=== PATIENT | male | born 1935 | race Caucasian/White ===

== ENCOUNTER 2019-02-18 06:21 | Inpatient (IN) | payer MEDICARE, MEDICAID ==
[~2019-02-18] VITALS: Ht 177.8 cm; Wt 75.0 kg
[~2019-02-18 06:21] MED LIST: ASPI-1265 PO; METH500T PO; NITR0.4T51 SL; WALK1EAC55 MC
[2019-02-18] MEDS ORDERED: normal saline 1000ml 1,000 ML IV ONE (06:30)
[2019-02-18 07:09] LABS: BASOPHILS % (AUTO) 0.4 % (0-1); EOSINOPHILS % (AUTO) 0.1 % (0-6); HEMATOCRIT 44.5 % (42.0-52.0); HEMOGLOBIN 15.1 g/dl (14.0-17.9); LYMPHOCYTES # (AUTO) 0.5 X10'3 (1.1-4.8); LYMPHOCYTES % (AUTO) 4.4 % (21-51); MEAN CORPUSCULAR HEMOGLOBIN 32.8 PG (27.0-31.0); MEAN CORPUSCULAR HGB CONC 33.9 g/dL (33.0-36.5); MEAN CORPUSCULAR VOLUME 96.8 FL (78-98); MEAN PLATELET VOLUME 7.6 FL (7.4-10.4); MONOCYTES # (AUTO) 0.9 X10'3 (0-0.9); MONOCYTES % (AUTO) 7.2 % (2-12); NEUTROPHILS % (AUTO) 87.9 % (42-75); PLATELET COUNT 240 X10'3 (140-440); RED CELL DISTRIBUTION WIDTH 12.7 % (11.5-14.5); WHITE BLOOD COUNT 12.5 X10'3 (4.5-11.0)
[2019-02-18 07:18] LABS: CLARITY,URINE CLEAR (Clear); COLOR,URINE YELLOW (Yellow); GLUCOSE, URINE NEGATIVE (Neg); KETONES,URINE TRACE mg/dl (Neg); LEUKOCYTE ESTERASE ,URINE NEGATIVE (Neg); NITRITES, URINE NEGATIVE (Neg); OCCULT BLOOD,URINE TRACE-INTACT (Neg); PH,URINE 5.5 (4.8-8.0); PROTEIN,URINE NEGATIVE (Neg); UROBILINOGEN,URINE 0.2 E.U/dL (0.2-1.0)
[2019-02-18 07:19] LABS: UA COLLECTION TYPE URINAL
[2019-02-18 07:20] LABS: PARTIAL THROMBOPLASTIN TIME 31 SECONDS (22-32)
[2019-02-18 07:25] LABS: BACTERIA,URINE FEW /HPF (Neg); MUCUS STRANDS NONE SEEN /LPF (Neg); RBC,URINE 0-2 /HPF (0-2); SQUAMOUS EPITHELIAL CELL,UR FEW /LPF (FEW); WBC,URINE 0-4 /HPF (0-4)
[2019-02-18 07:25] LABS: ALANINE AMINOTRANSFERASE 23 U/L (12-78); ALBUMIN 3.5 G/DL (3.4-5.0); ALBUMIN/GLOBULIN RATIO 0.9 (1.1-1.5); ALKALINE PHOSPHATASE 118 IU/L (46-116); ANION GAP 12 (8-16); ASPARTATE AMINO TRANSFERASE 19 U/L (10-37); BILIRUBIN,TOTAL 0.8 MG/DL (0.1-1.0); BLOOD UREA NITROGEN 30 MG/DL (7-18); BUN/CREATININE RATIO 10.8 (5.4-32.0); CALCIUM 8.7 MG/DL (8.5-10.1); CHLORIDE 109 MMOL/L (99-107); CREATININE 2.78 MG/DL (0.60-1.10); GLUCOSE 114 MG/DL (70-104); POTASSIUM 4.8 MMOL/L (3.5-5.1); SODIUM 144 MMOL/L (135-145); TOTAL CARBON DIOXIDE 22.7 MMOL/L (24-32); TOTAL PROTEIN 7.4 G/DL (6.4-8.2); eGFR 22 ML/MIN
[2019-02-18 07:26] LABS: HYALINE CASTS 0-3 /LPF (NEGATIVE)
[2019-02-18 07:29] LABS: MAGNESIUM 1.9 MG/DL (1.5-2.4); TROPONIN I < 0.04 NG/ML (0.0-0.05)
[2019-02-18] MEDS ORDERED: amox tr/potassium clavulanate 875/125mg TAB PO ONE (08:50)
[2019-02-18] MEDS ORDERED: ondansetron/PF 4mg/2ml inj IV ONE (08:50)
[2019-02-18] MEDS ORDERED: azithromycin/NS 500mg/250ml 250 ML IV ONE (09:10)
[2019-02-18] MEDS ORDERED: ondansetron/PF 4mg/2ml inj IV PRN (09:45)
[2019-02-18] MEDS ORDERED: HYDROcodone/acetaminophen 5mg/325mg tablet PO PRN (09:45)
[2019-02-18] MEDS ORDERED: acetaminophen 325mg tablet PO PRN ×2 (09:45)
[2019-02-18] MEDS ORDERED: morphine 2 MG/ML inj. syringe IV PRN (09:45)
[2019-02-18] MEDS: normal saline 1000ml 1,000 ML IV SCH ×2 (10:04→20:12)
[2019-02-18] MEDS ORDERED: METO-395 PO ×2 (10:10→10:46)
[2019-02-18] MEDS ORDERED: CLOP75TA35 PO (10:10)
[2019-02-18] MEDS ORDERED: SERT25TA PO (10:10)
[2019-02-18] MEDS ORDERED: ERGO500014 PO ×2 (10:10→10:48)
[2019-02-18] MEDS ORDERED: SERT-153 PO (10:44)
--- NOTE | 2019-02-18 10:46 | NUR ---
JES SHELTON, CAREGIVER: [phone]
[2019-02-18] MEDS ORDERED: METO25TA6 PO (10:47)
[2019-02-18] MEDS: amLODIPine 5mg tablet PO SCH (11:20)
--- NOTE | 2019-02-18 13:10 | NUR ---
PT CAME TO FLOOR. I CHANGED HIS GOWN. CLEANED HIM UP. HE HAD BM FROM HIS GENITALS TO HIS ANKLES. PUT HIS TELE ON, AND DID V/S. GOT HIS SOME WATER AND GAVE HIM HIS CALL LIGHT
[2019-02-18 13:11] LABS: CLARITY,URINE CLEAR (Clear); COLOR,URINE YELLOW (Yellow); GLUCOSE, URINE NEGATIVE (Neg); KETONES,URINE NEGATIVE (Neg); LEUKOCYTE ESTERASE ,URINE NEGATIVE (Neg); NITRITES, URINE NEGATIVE (Neg); OCCULT BLOOD,URINE TRACE-INTACT (Neg); PH,URINE 5.5 (4.8-8.0); PROTEIN,URINE NEGATIVE (Neg); UROBILINOGEN,URINE 0.2 E.U/dL (0.2-1.0)
[2019-02-18 13:14] LABS: UA COLLECTION TYPE URINAL
[2019-02-18 13:15] VITALS: BP 162/75
[2019-02-18 13:20] LABS: BACTERIA,URINE NONE SEEN /HPF (Neg); RBC,URINE 0-2 /HPF (0-2); SQUAMOUS EPITHELIAL CELL,UR FEW /LPF (FEW); WBC,URINE NONE SEEN /HPF (0-4)
[2019-02-18] MEDS: piperacillin/tazo 3.375gm/50ml 50 ML IV SCH ×2 (16:43→23:58)
--- NOTE | 2019-02-18 17:59 | NUR ---
Problems reprioritized. Patient report given, questions answered & plan of care reviewed with GRACIE LAGUNAS.
--- NOTE | 2019-02-18 18:38 | NUR ---
Received report from Meghana LAGUNAS pt is awake on RA in no apparent distress call light and items of freq use within reach.
[2019-02-18 19:10] VITALS: BP 156/85
[2019-02-18] MEDS: heparin, porcine 5000 units/ml vial SQ SCH (20:13)
[2019-02-18] MEDS: metoprolol tartrate 25mg tablet PO SCH (20:13)
[2019-02-18] MEDS: lactobacillus rhamnosus 10,000 MMU CELLS/CAPSULE PO SCH (20:13)
[2019-02-18] MEDS ORDERED: temazepam 15mg capsule PO PRN (21:00)
[2019-02-19 00:40] VITALS: BP 118/73
[2019-02-19] MEDS: normal saline 1000ml 1,000 ML IV SCH ×2 (05:06→15:50)
[2019-02-19 06:00] LABS: BASOPHILS % (AUTO) 0.7 % (0-1); EOSINOPHILS # (AUTO) 0.1 X10'3 (0-0.9); EOSINOPHILS % (AUTO) 1.7 % (0-6); HEMATOCRIT 38.2 % (42.0-52.0); LYMPHOCYTES # (AUTO) 0.9 X10'3 (1.1-4.8); LYMPHOCYTES % (AUTO) 12.9 % (21-51); MEAN CORPUSCULAR HEMOGLOBIN 33.1 PG (27.0-31.0); MEAN CORPUSCULAR HGB CONC 34.1 g/dL (33.0-36.5); MEAN CORPUSCULAR VOLUME 96.9 FL (78-98); MEAN PLATELET VOLUME 8.1 FL (7.4-10.4); MONOCYTES # (AUTO) 0.9 X10'3 (0-0.9); MONOCYTES % (AUTO) 14.1 % (2-12); NEUTROPHILS # (AUTO) 4.7 X10'3 (1.8-7.7); NEUTROPHILS % (AUTO) 70.6 % (42-75); PLATELET COUNT 167 X10'3 (140-440); RED BLOOD COUNT 3.94 X10'6 (4.70-6.10); RED CELL DISTRIBUTION WIDTH 12.5 % (11.5-14.5); WHITE BLOOD COUNT 6.7 X10'3 (4.5-11.0)
--- NOTE | 2019-02-19 06:10 | NUR ---
Patient in room MOISE 356. I have received report from Ayde LAGUNAS and had the opportunity to ask questions and assume patient care.
--- NOTE | 2019-02-19 06:30 | NUR ---
Dr. Puckett aware of positive blood culture gram positive cocci in clusters from aerobic bottle. MD ordered repeat blood cultures.
--- NOTE | 2019-02-19 06:31 | NUR ---
Gave report to Eulalia LAGUNAS with Waleska LAGUNAS pt is on 1L of O2 via NC in no apparent distress, call light and items of freq use within reach.
[2019-02-19 06:33] LABS: ALBUMIN 2.8 G/DL (3.4-5.0); ANION GAP 9 (8-16); BLOOD UREA NITROGEN 24 MG/DL (7-18); BUN/CREATININE RATIO 10.9 (5.4-32.0); CHLORIDE 111 MMOL/L (99-107); CREATININE 2.21 MG/DL (0.60-1.10); GLUCOSE 72 MG/DL (70-104); POTASSIUM 4.4 MMOL/L (3.5-5.1); SODIUM 142 MMOL/L (135-145); TOTAL CARBON DIOXIDE 21.9 MMOL/L (24-32); eGFR 29 ML/MIN
[2019-02-19 07:06] VITALS: BP 169/83
[2019-02-19 07:28] VITALS: BP_SYST 147; BP_SYST 169; BP_SYST 185; BP_DIAS 75; BP_DIAS 83; BP_DIAS 88
[2019-02-19] MEDS: piperacillin/tazo 3.375gm/50ml 50 ML IV SCH ×2 (08:02→15:51)
[2019-02-19] MEDS: lactobacillus rhamnosus 10,000 MMU CELLS/CAPSULE PO SCH ×2 (08:02→19:26)
[2019-02-19] MEDS: amLODIPine 5mg tablet PO SCH (08:02)
[2019-02-19] MEDS: sertraline 50mg tablet PO SCH (08:02)
[2019-02-19] MEDS: metoprolol tartrate 25mg tablet PO SCH (08:02)
[2019-02-19] MEDS: clopidogrel 75mg tablet PO SCH (08:02)
[2019-02-19] MEDS: heparin, porcine 5000 units/ml vial SQ SCH ×2 (08:03→19:26)
[2019-02-19 11:15] VITALS: BP 103/61
[2019-02-19 18:00] VITALS: BP_SYST 142; BP_SYST 153; BP_SYST 160; BP_DIAS 68; BP_DIAS 69; BP_DIAS 70
--- NOTE | 2019-02-19 18:17 | NUR ---
Received report from BEBO Esteban with BEBO Galeano. Patient is awake and alert on room air, in no apparent distress. Having meal. Call light and items of frequent use within reach. Will continue to monitor.
--- NOTE | 2019-02-19 18:45 | NUR ---
Problems reprioritized. Patient report given, questions answered & plan of care reviewed with Maria Ines LAGUNAS.
[2019-02-19] MEDS: metoprolol tartrate 12.5mg (1/2 tablet) PO SCH (19:29)
[2019-02-20] VITALS: BP 167/67
[2019-02-20] MEDS: piperacillin/tazo 3.375gm/50ml 50 ML IV SCH ×2 (00:55→07:46)
[2019-02-20] MEDS: normal saline 1000ml 1,000 ML IV SCH ×2 (02:42→11:44)
[2019-02-20 06:05] LABS: BASOPHILS % (AUTO) 0.5 % (0-1); EOSINOPHILS # (AUTO) 0.2 X10'3 (0-0.9); EOSINOPHILS % (AUTO) 2.9 % (0-6); HEMATOCRIT 38.7 % (42.0-52.0); LYMPHOCYTES # (AUTO) 1.1 X10'3 (1.1-4.8); LYMPHOCYTES % (AUTO) 13.9 % (21-51); MEAN CORPUSCULAR HEMOGLOBIN 32.5 PG (27.0-31.0); MEAN CORPUSCULAR HGB CONC 33.6 g/dL (33.0-36.5); MEAN CORPUSCULAR VOLUME 96.7 FL (78-98); MEAN PLATELET VOLUME 8.2 FL (7.4-10.4); MONOCYTES % (AUTO) 13.1 % (2-12); NEUTROPHILS # (AUTO) 5.4 X10'3 (1.8-7.7); NEUTROPHILS % (AUTO) 69.6 % (42-75); PLATELET COUNT 176 X10'3 (140-440); RED CELL DISTRIBUTION WIDTH 12.5 % (11.5-14.5); WHITE BLOOD COUNT 7.8 X10'3 (4.5-11.0)
--- NOTE | 2019-02-20 06:09 | NUR ---
Problems reprioritized. Patient report given, questions answered & plan of care reviewed with BEBO Esteban.
--- NOTE | 2019-02-20 06:15 | NUR ---
Patient in room MOISE 356. I have received report from Maria Ines LAGUNAS and had the opportunity to ask questions and assume patient care.
[2019-02-20 06:17] LABS: ALBUMIN 2.9 G/DL (3.4-5.0); ANION GAP 13 (8-16); BLOOD UREA NITROGEN 21 MG/DL (7-18); BUN/CREATININE RATIO 10.6 (5.4-32.0); CALCIUM 8.2 MG/DL (8.5-10.1); CHLORIDE 109 MMOL/L (99-107); CREATININE 1.98 MG/DL (0.60-1.10); GLUCOSE 71 MG/DL (70-104); POTASSIUM 4.2 MMOL/L (3.5-5.1); SODIUM 140 MMOL/L (135-145); TOTAL CARBON DIOXIDE 18.4 MMOL/L (24-32); eGFR 32 ML/MIN
[2019-02-20 07:29] VITALS: BP 177/88
[2019-02-20 07:32] VITALS: BP_SYST 148; BP_SYST 177; BP_DIAS 87; BP_DIAS 88
[2019-02-20] MEDS: sertraline 50mg tablet PO SCH (07:45)
[2019-02-20] MEDS: metoprolol tartrate 12.5mg (1/2 tablet) PO SCH (07:45)
[2019-02-20] MEDS: amLODIPine 5mg tablet PO SCH (07:46)
[2019-02-20] MEDS: lactobacillus rhamnosus 10,000 MMU CELLS/CAPSULE PO SCH (07:46)
[2019-02-20] MEDS: heparin, porcine 5000 units/ml vial SQ SCH (07:46)
[2019-02-20] MEDS: clopidogrel 75mg tablet PO SCH (07:46)
[2019-02-20] MEDS ORDERED: amLODIPine 5mg tablet PO STA (10:25)
[2019-02-20] MEDS ORDERED: NOR5T PO (10:46)
[2019-02-20] MEDS ORDERED: METO25TA6 PO (10:46)
[2019-02-20] MEDS ORDERED: AMOX-580 PO (10:46)
[2019-02-20 11:36] VITALS: BP 106/73
--- NOTE | 2019-02-20 13:13 | NUR ---
Patient discharged with all belongings. Rx delivered to bedside via [facility]. Caregiver to take pt home. W/C to front lobby. IV taken out, tele taken off.
== END 2019-02-20 13:45 | disposition home or self-care (01) | DRG 871 ==
LOC: ER 06:21 → SUR 3N 13:18
PROVIDERS: ADMIT Internal Medicine; ATTEND Internal Medicine
DX: A41.9 Sepsis, unspecified organism (principal); J18.9 Pneumonia, unspecified organism; N17.9 Acute kidney failure, unspecified; N18.4 Chronic kidney disease, stage 4 (severe); J44.0 Chronic obstructive pulmonary disease with (acute) lower respiratory infection; K57.12 Diverticulitis of small intestine without perforation or abscess without bleeding; Z66 Do not resuscitate; H91.90 Unspecified hearing loss, unspecified ear; R00.1 Bradycardia, unspecified; K52.9 Noninfective gastroenteritis and colitis, unspecified; F03.90 Unspecified dementia, unspecified severity, without behavioral disturbance, psychotic disturbance, mood disturbance, and anxiety; I12.9 Hypertensive chronic kidney disease with stage 1 through stage 4 chronic kidney disease, or unspecified chronic kidney disease; I25.10 Atherosclerotic heart disease of native coronary artery without angina pectoris; Z95.1 Presence of aortocoronary bypass graft; Z79.02 Long term (current) use of antithrombotics/antiplatelets; Z79.899 Other long term (current) drug therapy; Z87.01 Personal history of pneumonia (recurrent); Z87.891 Personal history of nicotine dependence
CPT/HCPCS: 36415; 71045; 74176; 80048; 80053; 81001; 83605; 83735; 84145; 84484; 85025; 85610; 85730; 87040; 87077; 87081; 87186; 93005; 96361; 96365; 96375; 97116; 97161; 97530; 99285; G0378; J0456; J1644; J2405; J2543; J7030

== ENCOUNTER 2019-12-31 01:40 | Emergency (ER) | payer MEDICARE, MEDICAID ==
[~2019-12-31] VITALS: Ht 182.9 cm; Wt 71.8 kg
[~2019-12-31 01:40] MED LIST changes: -ASPI-1265 PO; +CLOP75TA35 PO; +ERGO500014 PO; -METH500T PO; +METO25TA6 PO; +NOR5T PO; +SERT-153 PO; -WALK1EAC55 MC
[2019-12-31 02:48] LABS: BASOPHILS # (AUTO) 0.1 X10'3 (0-0.2); BASOPHILS % (AUTO) 0.4 % (0-1); EOSINOPHILS % (AUTO) 0.1 % (0-6); HEMATOCRIT 44.1 % (42.0-52.0); HEMOGLOBIN 14.9 g/dl (14.0-17.9); LYMPHOCYTES # (AUTO) 0.9 X10'3 (1.1-4.8); MEAN CORPUSCULAR HEMOGLOBIN 32.2 PG (27.0-31.0); MEAN CORPUSCULAR HGB CONC 33.8 g/dL (33.0-36.5); MEAN CORPUSCULAR VOLUME 95.1 FL (78-98); MEAN PLATELET VOLUME 8.6 FL (7.4-10.4); MONOCYTES # (AUTO) 1.7 X10'3 (0-0.9); MONOCYTES % (AUTO) 7.3 % (2-12); NEUTROPHILS # (AUTO) 20.8 X10'3 (1.8-7.7); NEUTROPHILS % (AUTO) 88.2 % (42-75); PLATELET COUNT 207 X10'3 (140-440); RED BLOOD COUNT 4.64 X10'6 (4.70-6.10); RED CELL DISTRIBUTION WIDTH 13.6 % (11.5-14.5); WHITE BLOOD COUNT 23.6 X10'3 (4.5-11.0)
[2019-12-31 03:01] LABS: ALANINE AMINOTRANSFERASE 24 U/L (12-78); ALBUMIN 3.8 G/DL (3.4-5.0); ALKALINE PHOSPHATASE 107 IU/L (46-116); ANION GAP 13 (8-16); ASPARTATE AMINO TRANSFERASE 20 U/L (10-37); BILIRUBIN,TOTAL 0.8 MG/DL (0.1-1.0); BLOOD UREA NITROGEN 29 MG/DL (7-18); BUN/CREATININE RATIO 10.1 (5.4-32.0); CALCIUM 9.2 MG/DL (8.5-10.1); CHLORIDE 107 MMOL/L (99-107); CREATININE 2.86 MG/DL (0.60-1.10); GLUCOSE 134 MG/DL (70-104); POTASSIUM 4.8 MMOL/L (3.5-5.1); SODIUM 142 MMOL/L (135-145); TOTAL PROTEIN 7.6 G/DL (6.4-8.2); eGFR 21 ML/MIN
[2019-12-31] MEDS ORDERED: normal saline 1000ML IV soln IV ONE (03:15)
[2019-12-31 03:30] LABS: CLARITY,URINE CLEAR (Clear); COLOR,URINE YELLOW (Yellow); GLUCOSE, URINE NEGATIVE (Neg); KETONES,URINE TRACE mg/dl (Neg); LEUKOCYTE ESTERASE ,URINE NEGATIVE (Neg); NITRITES, URINE NEGATIVE (Neg); OCCULT BLOOD,URINE NEGATIVE (Neg); PH,URINE 5.5 (4.8-8.0); PROTEIN,URINE NEGATIVE (Neg); UROBILINOGEN,URINE 0.2 E.U/dL (0.2-1.0)
[2019-12-31 03:32] LABS: PLATELET ESTIMATE NORMAL; TOTAL CELLS COUNTED 100
[2019-12-31 03:33] LABS: UA COLLECTION TYPE CLN CATCH MIDSTREAM
[2019-12-31 03:43] VITALS: BP 151/76
--- NOTE | 2019-12-31 05:08 | NUR ---
Spoke with Lisa (caregiver) re need for transport for pt. back home. Lisa will be making her way down to [place] from [facility]. ETA 45 mins.
== END 2019-12-31 06:22 | disposition home or self-care (01) ==
LOC: ER 01:41
DX: R53.1 Weakness (principal); F03.90 Unspecified dementia, unspecified severity, without behavioral disturbance, psychotic disturbance, mood disturbance, and anxiety; R11.10 Vomiting, unspecified; J44.9 Chronic obstructive pulmonary disease, unspecified; Z87.891 Personal history of nicotine dependence; Z79.899 Other long term (current) drug therapy
CPT/HCPCS: 36415; 70450; 71045; 80053; 81003; 83605; 84145; 84443; 84484; 85025; 87040; 93005; 99285; J7030

== ENCOUNTER 2020-02-01 20:49 | Inpatient (IN) | payer MEDICARE, MEDICAID ==
[~2020-02-01] VITALS: Ht 182.9 cm; Wt 68.2 kg
--- NOTE | 2020-02-01 21:02 | NUR ---
X RAY AT BEDSIDE
[2020-02-01 21:17] LABS: BASOPHILS # (AUTO) 0.1 X10'3 (0-0.2); BASOPHILS % (AUTO) 0.7 % (0-1); EOSINOPHILS # (AUTO) 0.1 X10'3 (0-0.9); EOSINOPHILS % (AUTO) 0.8 % (0-6); HEMATOCRIT 42.6 % (42.0-52.0); HEMOGLOBIN 14.2 g/dl (14.0-17.9); LYMPHOCYTES # (AUTO) 1.3 X10'3 (1.1-4.8); MEAN CORPUSCULAR HEMOGLOBIN 31.7 PG (27.0-31.0); MEAN CORPUSCULAR HGB CONC 33.3 g/dL (33.0-36.5); MEAN CORPUSCULAR VOLUME 95.2 FL (78-98); MEAN PLATELET VOLUME 9.1 FL (7.4-10.4); MONOCYTES # (AUTO) 1.6 X10'3 (0-0.9); MONOCYTES % (AUTO) 13.9 % (2-12); NEUTROPHILS # (AUTO) 8.5 X10'3 (1.8-7.7); NEUTROPHILS % (AUTO) 73.6 % (42-75); PLATELET COUNT 165 X10'3 (140-440); RED BLOOD COUNT 4.47 X10'6 (4.70-6.10); WHITE BLOOD COUNT 11.6 X10'3 (4.5-11.0)
[2020-02-01 21:34] LABS: ALANINE AMINOTRANSFERASE 28 U/L (12-78); ALBUMIN 3.6 G/DL (3.4-5.0); ALBUMIN/GLOBULIN RATIO 0.9 (1.1-1.5); ALKALINE PHOSPHATASE 100 IU/L (46-116); ANION GAP 9 (8-16); ASPARTATE AMINO TRANSFERASE 20 U/L (10-37); BILIRUBIN,TOTAL 0.8 MG/DL (0.1-1.0); BLOOD UREA NITROGEN 33 MG/DL (7-18); BUN/CREATININE RATIO 11.9 (5.4-32.0); CALCIUM 9.1 MG/DL (8.5-10.1); CHLORIDE 105 MMOL/L (99-107); CREATININE 2.77 MG/DL (0.60-1.10); GLUCOSE 106 MG/DL (70-104); POTASSIUM 4.4 MMOL/L (3.5-5.1); SODIUM 140 MMOL/L (135-145); TOTAL PROTEIN 7.4 G/DL (6.4-8.2); eGFR 22 ML/MIN
--- NOTE | 2020-02-01 22:18 | NUR ---
MONITORING PT WHILE PRIMARY RN IS ON BREAK.
--- NOTE | 2020-02-01 23:36 | NUR ---
CALLED JES WHO IS LISTED IN PTS CHART A FRIEND TO COME PICK PT UP THERE WAS NO ANSWER I LEFT MESSAGE
--- NOTE | 2020-02-01 23:57 | NUR ---
BREAKING PRIMARY RN WHILE SHE IS ON LUNCH- WILL CONTINUE TO MONITOR.
--- NOTE | 2020-02-01 23:58 | NUR ---
PER ROBERTO LAGUNAS, SHE SPOKE TO DAT KENDRICK; HE WOULD LIKE A GAIT TEST TO BE COMPLETED ON PT AND UPDATE HIM WITH RESULTS OF GAIT TEST.
--- NOTE | 2020-02-02 00:04 | NUR ---
gait test being completed by Will
--- NOTE | 2020-02-02 00:14 | NUR ---
PT DID NOT PASS GAIT TEST- WILL UPDATE DR. DAUGHERTY
--- NOTE | 2020-02-02 00:30 | NUR ---
PT MOLDER MACHINE TENDER JES THEOMOSES CAN BE REACHED AT [phone] OR [phone] SHE CALLED TO CHECK ON PT AND WAS ABLE TO REIEW HIS MEDICATION REGIEME OVER THE PHONE . SHE STATES SHE HELPS GIVE PT HIS MEDICATION
[2020-02-02] MEDS ORDERED: HYDROcodone/acetaminophen 10/325mg tab PO PRN (01:45)
[2020-02-02] MEDS ORDERED: ondansetron/PF 4mg/2ml inj IV PRN (01:45)
[2020-02-02] MEDS ORDERED: potassium Cl 20 mEq SR tablet PO PRN ×2 (01:45)
[2020-02-02] MEDS ORDERED: magnesium 2GM in 50ml NS 50 ML IV PRN (01:45)
[2020-02-02] MEDS ORDERED: mag hydrox/Alum hydrox/simeth 30ml oral suspension PO PRN (01:45)
[2020-02-02] MEDS ORDERED: magnesium 4gm in 100ml NS 100 ML IV PRN (01:45)
[2020-02-02] MEDS ORDERED: HYDROcodone/acetaminophen 5mg/325mg tablet PO PRN (01:45)
[2020-02-02] MEDS ORDERED: potassium CL 10mEq/100ml bag 100 ML IV PRN ×2 (01:45)
[2020-02-02] MEDS ORDERED: ipratropium/albuterol 3ml nebule NEB PRN (01:45)
[2020-02-02] MEDS ORDERED: acetaminophen 325mg tablet PO PRN (01:45)
[2020-02-02] MEDS: normal saline 1000ml 1,000 ML IV SCH ×3 (02:09→21:45)
[2020-02-02] MEDS ORDERED: METO25TA6 PO (02:30)
[2020-02-02] MEDS ORDERED: AMLO2.5T2 PO (02:30)
[2020-02-02] MEDS ORDERED: ROSU10TA2 PO (02:30)
--- NOTE | 2020-02-02 02:43 | NUR ---
BREAKING PRIMARY RN; WILL CONTINUE TO MONITOR PT STATUS.
[2020-02-02 02:58] LABS: BASOPHILS # (AUTO) 0.1 X10'3 (0-0.2); EOSINOPHILS # (AUTO) 0.1 X10'3 (0-0.9); HEMATOCRIT 41.1 % (42.0-52.0); MEAN CORPUSCULAR HEMOGLOBIN 32.5 PG (27.0-31.0); MEAN CORPUSCULAR HGB CONC 34.1 g/dL (33.0-36.5)
[2020-02-02 02:59] LABS: BASOPHILS % (AUTO) 0.8 % (0-1); EOSINOPHILS % (AUTO) 0.5 % (0-6); LYMPHOCYTES % (AUTO) 7.3 % (21-51); MEAN CORPUSCULAR VOLUME 95.4 FL (78-98); MEAN PLATELET VOLUME 8.8 FL (7.4-10.4); MONOCYTES # (AUTO) 1.6 X10'3 (0-0.9); MONOCYTES % (AUTO) 11.2 % (2-12); NEUTROPHILS # (AUTO) 11.3 X10'3 (1.8-7.7); NEUTROPHILS % (AUTO) 80.2 % (42-75); PLATELET COUNT 146 X10'3 (140-440); RED BLOOD COUNT 4.31 X10'6 (4.70-6.10); RED CELL DISTRIBUTION WIDTH 12.9 % (11.5-14.5); WHITE BLOOD COUNT 14.1 X10'3 (4.5-11.0)
[2020-02-02 03:49] LABS: ALANINE AMINOTRANSFERASE 28 U/L (12-78); ALBUMIN 3.4 G/DL (3.4-5.0); ALBUMIN/GLOBULIN RATIO 0.9 (1.1-1.5); ALKALINE PHOSPHATASE 98 IU/L (46-116); ANION GAP 12 (8-16); ASPARTATE AMINO TRANSFERASE 18 U/L (10-37); BILIRUBIN,TOTAL 0.8 MG/DL (0.1-1.0); BLOOD UREA NITROGEN 34 MG/DL (7-18); BUN/CREATININE RATIO 13.7 (5.4-32.0); CALCIUM 8.9 MG/DL (8.5-10.1); CHLORIDE 106 MMOL/L (99-107); CREATININE 2.48 MG/DL (0.60-1.10); GLUCOSE 109 MG/DL (70-104); POTASSIUM 4.4 MMOL/L (3.5-5.1); SODIUM 140 MMOL/L (135-145); TOTAL CARBON DIOXIDE 22.2 MMOL/L (24-32); TOTAL PROTEIN 7.3 G/DL (6.4-8.2); eGFR 25 ML/MIN
--- NOTE | 2020-02-02 06:01 | NUR ---
PT AWOKE UPON VS ASSESSMENT . PT WAS ABLE TO TELL THIS RECORDER, WHERE HE IS, HIS BIRTHDATE, THE PRESIDENT , AND WHO CARES FOR HIM . PT PRESENTS NOT CONFUSED HE WAS AT ADMISSION , AND IS ASKING QUESTIONS ABOUT HIS PLAN OF CARE
--- NOTE | 2020-02-02 06:17 | NUR ---
Patient in room ED 14. I have received report from BEBO Park and had the opportunity to ask questions and awaiting pts arrival from ED.
[2020-02-02 06:30] VITALS: BP 138/68
--- NOTE | 2020-02-02 06:30 | NUR ---
Patient arrived from ED, alert and oriented to room. Transferred pt with backboard and 3 person assist to bed. Bed locked and lowered, call light within reach, non skid socks on. First set of vitals taken: T 98.3 BP 138/68 HR 90 R 18 02 96 room air Pain 0/10.
--- NOTE | 2020-02-02 06:30 | NUR ---
Patient in room PCU 3028. I have received report from Vivian LAGUNAS and had the opportunity to ask questions and assume patient care.
--- NOTE | 2020-02-02 07:44 | NUR ---
Pt asked about his wallet with $1,000 in it which was in his pants pocket. Myself, along with another RN looked through his belongings and didn't see a wallet. I called ED, spoke with Prosper who called security, they denied having any sort of wallet for pt. I called ED and spoke with Adilia, charge operator, she called the nurse that took care of him when he arrived to ED, she stated that he didn't have a wallet but had a brown folded thing with his cards in it, no márquez noted. I looked through his belongings, he has a black cane, white socks, kim shirt, dark underwear, blue jeans, shoes, a gold band ring, a gold watch, in jeans pocket was $1.51 in change, a partnership card and medicare card, and two pocket knives that were sent to security. I also called down to security my self, and they are going to look around for a wallet and let me know if they find anything with his name on it.
[2020-02-02] MEDS: K and/or MAG REPLACEMENT MC SCH ×2 (08:00→20:00)
[2020-02-02] MEDS: docusate sod 100mg capsule PO SCH ×2 (08:00→20:00)
[2020-02-02] MEDS: clopidogrel 75mg tablet PO SCH (08:12)
[2020-02-02] MEDS: CefTRIAXone/D5W-Rocephin 1gm 50 ML IV SCH (08:13)
[2020-02-02] MEDS: heparin, porcine 5000 units/ml vial SQ SCH ×2 (08:13→20:58)
--- NOTE | 2020-02-02 09:35 | NUR ---
Spoke with caregiver Lisa, she informed me that patient's wallet and money are at home in his safe.
--- NOTE | 2020-02-02 09:59 | NUR ---
Paged Protective Services Social Worker regarding a consult Re: Jesús Goodman [id number] Pt needs consulted please. Thank you [phone]
[2020-02-02 11:00] VITALS: BP 132/75
[2020-02-02 15:00] VITALS: BP 141/66
[2020-02-02] MEDS ORDERED: nitroGLYCERIN 0.4mg SUBLingual tab SL SCH (16:35)
[2020-02-02 18:00] VITALS: BP 139/71
--- NOTE | 2020-02-02 18:19 | NUR ---
Problems reprioritized. Patient report given, questions answered & plan of care reviewed with BEBO Acevedo. Pt eating dinner sitting up in high fowlers. All pt needs met at this time.
--- NOTE | 2020-02-02 18:20 | NUR ---
Patient in room PCU 3028. I have received report from SALVADOR Gtuierrez RN and had the opportunity to ask questions and assume patient care.
[2020-02-02] MEDS: lactobacillus rhamnosus 10,000 MMU CELLS/CAPSULE PO SCH (20:00)
[2020-02-02] MEDS: metoprolol tartrate 25mg tablet PO SCH (20:58)
[2020-02-02] MEDS: ROSUVASTATIN CALCIUM PO SCH (21:00)
[2020-02-02 22:00] VITALS: BP 136/65
--- NOTE | 2020-02-02 23:39 | NUR ---
PTS IV WAS OCCLUDED, PT REFUSED NEW IV.
--- NOTE | 2020-02-02 23:46 | NUR ---
SENT PT TO [facility]: PAGER ID: [phone] MESSAGE: PT RA[place]aly IN [id number] REFUSES IV PLACEMENT. HAS IV ROCEPHIN IN MORN. NAZIA 2690 [facility] CALLED BACK, NO NEW ORDERS RECEIVED.
[2020-02-03 02:00] VITALS: BP 149/68
[2020-02-03 05:45] LABS: BASOPHILS # (AUTO) 0.1 X10'3 (0-0.2); BASOPHILS % (AUTO) 0.5 % (0-1); EOSINOPHILS # (AUTO) 0.1 X10'3 (0-0.9); EOSINOPHILS % (AUTO) 1.1 % (0-6); HEMOGLOBIN 13.3 g/dl (14.0-17.9); LYMPHOCYTES # (AUTO) 1.2 X10'3 (1.1-4.8); LYMPHOCYTES % (AUTO) 11.3 % (21-51); MEAN CORPUSCULAR HEMOGLOBIN 32.2 PG (27.0-31.0); MEAN CORPUSCULAR HGB CONC 34.1 g/dL (33.0-36.5); MEAN CORPUSCULAR VOLUME 94.5 FL (78-98); MEAN PLATELET VOLUME 9.3 FL (7.4-10.4); MONOCYTES # (AUTO) 1.1 X10'3 (0-0.9); MONOCYTES % (AUTO) 11.1 % (2-12); NEUTROPHILS # (AUTO) 7.7 X10'3 (1.8-7.7); PLATELET COUNT 162 X10'3 (140-440); RED BLOOD COUNT 4.13 X10'6 (4.70-6.10); RED CELL DISTRIBUTION WIDTH 12.9 % (11.5-14.5); WHITE BLOOD COUNT 10.2 X10'3 (4.5-11.0)
[2020-02-03 06:02] LABS: ALANINE AMINOTRANSFERASE 20 U/L (12-78); ALBUMIN/GLOBULIN RATIO 0.8 (1.1-1.5); ALKALINE PHOSPHATASE 89 IU/L (46-116); ANION GAP 13 (8-16); ASPARTATE AMINO TRANSFERASE 12 U/L (10-37); BILIRUBIN,TOTAL 0.8 MG/DL (0.1-1.0); BLOOD UREA NITROGEN 30 MG/DL (7-18); BUN/CREATININE RATIO 15.4 (5.4-32.0); CALCIUM 8.7 MG/DL (8.5-10.1); CHLORIDE 104 MMOL/L (99-107); CREATININE 1.95 MG/DL (0.60-1.10); GLUCOSE 77 MG/DL (70-104); MAGNESIUM 1.8 MG/DL (1.5-2.4); POTASSIUM 4.2 MMOL/L (3.5-5.1); SODIUM 137 MMOL/L (135-145); TOTAL CARBON DIOXIDE 20.4 MMOL/L (24-32); TOTAL PROTEIN 6.9 G/DL (6.4-8.2); eGFR 33 ML/MIN
--- NOTE | 2020-02-03 06:06 | NUR ---
Problems reprioritized. Patient report given, questions answered & plan of care reviewed with LILIA LAGUNAS.
--- NOTE | 2020-02-03 06:36 | NUR ---
Patient in room PCU 3028. I have received report from Jatin LAGUNAS and had the opportunity to ask questions and assume patient care.
[2020-02-03 07:00] VITALS: BP 138/72
[2020-02-03] MEDS ORDERED: clopidogrel 75mg tablet PO SCH (08:00)
[2020-02-03] MEDS: K and/or MAG REPLACEMENT MC SCH ×2 (08:00→20:00)
[2020-02-03] MEDS: normal saline 1000ml 1,000 ML IV SCH ×2 (08:45→21:53)
[2020-02-03] MEDS: CefTRIAXone/D5W-Rocephin 1gm 50 ML IV SCH (08:45)
[2020-02-03] MEDS: metoprolol tartrate 25mg tablet PO SCH ×2 (08:46→21:42)
[2020-02-03] MEDS: heparin, porcine 5000 units/ml vial SQ SCH ×2 (08:46→21:43)
[2020-02-03] MEDS: clopidogrel 75mg tablet PO SCH (08:47)
[2020-02-03] MEDS: lactobacillus rhamnosus 10,000 MMU CELLS/CAPSULE PO SCH ×2 (08:47→21:41)
[2020-02-03] MEDS: sertraline 50mg tablet PO SCH (08:47)
[2020-02-03] MEDS: docusate sod 100mg capsule PO SCH ×2 (08:47→21:44)
[2020-02-03] MEDS: amLODIPine 2.5mg tablet PO SCH (08:48)
[2020-02-03 09:54] LABS: CLARITY,URINE CLEAR (Clear); COLOR,URINE YELLOW (Yellow); GLUCOSE, URINE NEGATIVE (Neg); KETONES,URINE 15 mg/dl (Neg); LEUKOCYTE ESTERASE ,URINE NEGATIVE (Neg); NITRITES, URINE NEGATIVE (Neg); OCCULT BLOOD,URINE SMALL (Neg); PROTEIN,URINE NEGATIVE (Neg); UROBILINOGEN,URINE 0.2 E.U/dL (0.2-1.0)
[2020-02-03 10:03] LABS: BACTERIA,URINE NONE SEEN /HPF (Neg); MUCUS STRANDS FEW /LPF (Neg); RBC,URINE 0-2 /HPF (0-2); SQUAMOUS EPITHELIAL CELL,UR NONE SEEN /LPF (FEW); UA COLLECTION TYPE NON-SPECIFIED; WBC,URINE NONE SEEN /HPF (0-4)
[2020-02-03] MEDS ORDERED: nitroGLYCERIN 0.4mg SUBLingual tab SL PRN (10:15)
[2020-02-03 11:00] VITALS: BP 147/68
[2020-02-03 15:00] VITALS: BP 141/69
[2020-02-03 18:00] VITALS: BP 140/68
--- NOTE | 2020-02-03 18:00 | NUR ---
Patient in room U 3023. I have received report from Scar LAGUNAS and had the opportunity to ask questions and assume patient care. Addendum: 02/03/20 at 1851 by Mily Hess RN Amended: Links added.
--- NOTE | 2020-02-03 18:33 | NUR ---
Problems reprioritized. Patient report given, questions answered & plan of care reviewed with Jessica LAGUNAS.
[2020-02-03] MEDS: ROSUVASTATIN CALCIUM PO SCH (21:43)
--- NOTE | 2020-02-03 22:57 | NUR ---
Pt's day care home mother/POA by the name Lisa Deja called inquiring about patients concerns regarding being discharged. I informed Lisa that at this point pt. is still very weak and I did not have information on when pt was going to be discharged. Lisa asked what would be the best time to call for f/p tomorrow; I suggested to call at around 1000 AM; Lisa agreed. Addendum: 02/04/20 at 0702 by Mily Hess RN Amended: Links added.
[2020-02-04] VITALS: BP 162/73
[2020-02-04 05:42] LABS: BASOPHILS % (AUTO) 0.5 % (0-1); EOSINOPHILS % (AUTO) 0.5 % (0-6); HEMATOCRIT 37.1 % (42.0-52.0); HEMOGLOBIN 12.7 g/dl (14.0-17.9); LYMPHOCYTES # (AUTO) 0.9 X10'3 (1.1-4.8); LYMPHOCYTES % (AUTO) 9.7 % (21-51); MEAN CORPUSCULAR HEMOGLOBIN 32.3 PG (27.0-31.0); MEAN CORPUSCULAR HGB CONC 34.3 g/dL (33.0-36.5); MEAN PLATELET VOLUME 8.8 FL (7.4-10.4); MONOCYTES # (AUTO) 1.1 X10'3 (0-0.9); MONOCYTES % (AUTO) 11.7 % (2-12); NEUTROPHILS # (AUTO) 7.3 X10'3 (1.8-7.7); NEUTROPHILS % (AUTO) 77.6 % (42-75); PLATELET COUNT 169 X10'3 (140-440); RED BLOOD COUNT 3.95 X10'6 (4.70-6.10); RED CELL DISTRIBUTION WIDTH 12.7 % (11.5-14.5); WHITE BLOOD COUNT 9.4 X10'3 (4.5-11.0)
[2020-02-04 05:54] LABS: ALANINE AMINOTRANSFERASE 17 U/L (12-78); ALBUMIN 2.8 G/DL (3.4-5.0); ALBUMIN/GLOBULIN RATIO 0.7 (1.1-1.5); ALKALINE PHOSPHATASE 83 IU/L (46-116); ANION GAP 12 (8-16); ASPARTATE AMINO TRANSFERASE 14 U/L (10-37); BILIRUBIN,TOTAL 0.6 MG/DL (0.1-1.0); BLOOD UREA NITROGEN 26 MG/DL (7-18); BUN/CREATININE RATIO 14.3 (5.4-32.0); CALCIUM 8.9 MG/DL (8.5-10.1); CHLORIDE 104 MMOL/L (99-107); CREATININE 1.82 MG/DL (0.60-1.10); GLUCOSE 96 MG/DL (70-104); MAGNESIUM 1.7 MG/DL (1.5-2.4); POTASSIUM 3.7 MMOL/L (3.5-5.1); SODIUM 137 MMOL/L (135-145); TOTAL CARBON DIOXIDE 20.7 MMOL/L (24-32); TOTAL PROTEIN 6.7 G/DL (6.4-8.2); eGFR 36 ML/MIN
--- NOTE | 2020-02-04 06:00 | NUR ---
Patient in room PCU 3023. I have received report from Mily LAGUNAS and had the opportunity to ask questions and assume patient care.
--- NOTE | 2020-02-04 06:00 | NUR ---
Problems reprioritized. Patient report given, questions answered & plan of care reviewed with Pinky LAGUNAS. Addendum: 02/04/20 at 0706 by Mily Hess RN Amended: Links added.
[2020-02-04 07:00] VITALS: BP 147/74
[2020-02-04] MEDS: K and/or MAG REPLACEMENT MC SCH ×2 (08:00→20:00)
[2020-02-04] MEDS ORDERED: ergocalciferol (Vitamin D) 50,000 unit capsule PO SCH (08:00)
[2020-02-04] MEDS: CefTRIAXone/D5W-Rocephin 1gm 50 ML IV SCH (08:20)
[2020-02-04] MEDS: docusate sod 100mg capsule PO SCH ×2 (08:21→21:44)
[2020-02-04] MEDS: lactobacillus rhamnosus 10,000 MMU CELLS/CAPSULE PO SCH ×2 (08:21→21:44)
[2020-02-04] MEDS: metoprolol tartrate 25mg tablet PO SCH ×2 (08:21→21:45)
[2020-02-04] MEDS: heparin, porcine 5000 units/ml vial SQ SCH ×2 (08:22→21:47)
[2020-02-04] MEDS: sertraline 50mg tablet PO SCH (08:22)
[2020-02-04] MEDS: amLODIPine 2.5mg tablet PO SCH (08:22)
[2020-02-04] MEDS: clopidogrel 75mg tablet PO SCH (08:22)
[2020-02-04 11:00] VITALS: BP 134/59
[2020-02-04] MEDS: acetaminophen 325mg tablet PO PRN (12:43)
[2020-02-04 15:00] VITALS: BP 132/67
--- NOTE | 2020-02-04 15:56 | NUR ---
Problems reprioritized. Patient report given, questions answered & plan of care reviewed with Luana LAGUNAS.
--- NOTE | 2020-02-04 15:56 | NUR ---
Patient in room PCU 3023. I have received report from Elizabeth LAGUNAS and had the opportunity to ask questions and assume patient care.
--- NOTE | 2020-02-04 16:14 | NUR ---
POA/caregiver is Lisa Short [phone]
--- NOTE | 2020-02-04 18:00 | NUR ---
Patient in room U 3023. I have received report from Luana LAGUNAS and had the opportunity to ask questions and assume patient care. Addendum: 02/04/20 at 1902 by Mily Hess RN Amended: Links added.
[2020-02-04 20:00] VITALS: BP 173/79
[2020-02-04] MEDS: ROSUVASTATIN CALCIUM PO SCH (21:45)
--- NOTE | 2020-02-04 22:01 | NUR ---
Pt. awake alert to own name and place, reoriented pt. to place and event. c/o a sharp headache sharp in nurture.; geoff johnson given. will f/u Addendum: 02/04/20 at 2205 by Mily Hess RN Amended: Links added.
[2020-02-04 22:35] VITALS: BP 101/74
[2020-02-05 01:44] VITALS: BP 138/77
[2020-02-05 05:45] LABS: BASOPHILS # (AUTO) 0.1 X10'3 (0-0.2); BASOPHILS % (AUTO) 0.5 % (0-1); EOSINOPHILS # (AUTO) 0.1 X10'3 (0-0.9); EOSINOPHILS % (AUTO) 0.8 % (0-6); HEMATOCRIT 40.4 % (42.0-52.0); HEMOGLOBIN 13.9 g/dl (14.0-17.9); LYMPHOCYTES # (AUTO) 1.3 X10'3 (1.1-4.8); MEAN CORPUSCULAR HEMOGLOBIN 32.2 PG (27.0-31.0); MEAN CORPUSCULAR HGB CONC 34.3 g/dL (33.0-36.5); MEAN CORPUSCULAR VOLUME 93.8 FL (78-98); MEAN PLATELET VOLUME 8.8 FL (7.4-10.4); MONOCYTES # (AUTO) 1.1 X10'3 (0-0.9); MONOCYTES % (AUTO) 9.8 % (2-12); NEUTROPHILS # (AUTO) 8.3 X10'3 (1.8-7.7); NEUTROPHILS % (AUTO) 76.9 % (42-75); PLATELET COUNT 188 X10'3 (140-440); RED BLOOD COUNT 4.31 X10'6 (4.70-6.10); RED CELL DISTRIBUTION WIDTH 12.7 % (11.5-14.5); WHITE BLOOD COUNT 10.8 X10'3 (4.5-11.0)
[2020-02-05 06:00] LABS: ALANINE AMINOTRANSFERASE 16 U/L (12-78); ALBUMIN 2.9 G/DL (3.4-5.0); ALBUMIN/GLOBULIN RATIO 0.7 (1.1-1.5); ALKALINE PHOSPHATASE 89 IU/L (46-116); ANION GAP 13 (8-16); ASPARTATE AMINO TRANSFERASE 16 U/L (10-37); BILIRUBIN,TOTAL 0.5 MG/DL (0.1-1.0); BLOOD UREA NITROGEN 25 MG/DL (7-18); BUN/CREATININE RATIO 14.1 (5.4-32.0); CALCIUM 9.1 MG/DL (8.5-10.1); CHLORIDE 104 MMOL/L (99-107); CREATININE 1.77 MG/DL (0.60-1.10); GLUCOSE 88 MG/DL (70-104); MAGNESIUM 1.8 MG/DL (1.5-2.4); POTASSIUM 3.9 MMOL/L (3.5-5.1); SODIUM 137 MMOL/L (135-145); TOTAL CARBON DIOXIDE 20.5 MMOL/L (24-32); eGFR 37 ML/MIN
--- NOTE | 2020-02-05 06:00 | NUR ---
Problems reprioritized. Patient report given, questions answered & plan of care reviewed with Pinky LAGUNAS. Addendum: 02/05/20 at 0622 by Mily Hess RN Amended: Links added.
--- NOTE | 2020-02-05 06:00 | NUR ---
Patient in room PCU 3023. I have received report from Mily LAGUNAS and had the opportunity to ask questions and assume patient care.
--- NOTE | 2020-02-05 06:30 | NUR ---
Problems reprioritized. Patient report given, questions answered & plan of care reviewed with Tej LAGUNAS. Addendum: 02/05/20 at 0644 by Mily Hess RN Amended: Links added.
[2020-02-05] MEDS: K and/or MAG REPLACEMENT MC SCH ×2 (08:00→20:00)
[2020-02-05] MEDS: CefTRIAXone/D5W-Rocephin 1gm 50 ML IV SCH (08:07)
[2020-02-05] MEDS: lactobacillus rhamnosus 10,000 MMU CELLS/CAPSULE PO SCH ×2 (08:07→20:38)
[2020-02-05] MEDS: docusate sod 100mg capsule PO SCH ×2 (08:07→20:38)
[2020-02-05] MEDS: metoprolol tartrate 25mg tablet PO SCH ×2 (08:09→20:39)
[2020-02-05] MEDS: amLODIPine 2.5mg tablet PO SCH (08:10)
[2020-02-05] MEDS: sertraline 50mg tablet PO SCH (08:10)
[2020-02-05] MEDS: heparin, porcine 5000 units/ml vial SQ SCH ×2 (08:10→20:42)
[2020-02-05] MEDS: clopidogrel 75mg tablet PO SCH (08:10)
[2020-02-05 11:00] VITALS: BP 143/67
[2020-02-05 18:00] VITALS: BP 127/67
--- NOTE | 2020-02-05 18:00 | NUR ---
Problems reprioritized. Patient report given, questions answered & plan of care reviewed with Ghada LAGUNAS.
[2020-02-05] MEDS: ROSUVASTATIN CALCIUM PO SCH (20:39)
[2020-02-05 22:00] VITALS: BP 128/65
[2020-02-06 02:00] VITALS: BP 142/70
[2020-02-06 05:33] LABS: BASOPHILS # (AUTO) 0.1 X10'3 (0-0.2); BASOPHILS % (AUTO) 0.6 % (0-1); EOSINOPHILS # (AUTO) 0.2 X10'3 (0-0.9); HEMATOCRIT 42.6 % (42.0-52.0); HEMOGLOBIN 14.4 g/dl (14.0-17.9); LYMPHOCYTES # (AUTO) 1.1 X10'3 (1.1-4.8); LYMPHOCYTES % (AUTO) 11.7 % (21-51); MEAN CORPUSCULAR HEMOGLOBIN 31.8 PG (27.0-31.0); MEAN CORPUSCULAR HGB CONC 33.7 g/dL (33.0-36.5); MEAN CORPUSCULAR VOLUME 94.5 FL (78-98); MEAN PLATELET VOLUME 8.5 FL (7.4-10.4); MONOCYTES # (AUTO) 0.9 X10'3 (0-0.9); MONOCYTES % (AUTO) 8.9 % (2-12); NEUTROPHILS # (AUTO) 7.5 X10'3 (1.8-7.7); NEUTROPHILS % (AUTO) 76.8 % (42-75); PLATELET COUNT 240 X10'3 (140-440); RED BLOOD COUNT 4.51 X10'6 (4.70-6.10); RED CELL DISTRIBUTION WIDTH 12.6 % (11.5-14.5); WHITE BLOOD COUNT 9.8 X10'3 (4.5-11.0)
[2020-02-06 05:35] LABS: ALANINE AMINOTRANSFERASE 22 U/L (12-78); ALBUMIN 3.1 G/DL (3.4-5.0); ALBUMIN/GLOBULIN RATIO 0.7 (1.1-1.5); ALKALINE PHOSPHATASE 98 IU/L (46-116); ANION GAP 10 (8-16); ASPARTATE AMINO TRANSFERASE 19 U/L (10-37); BILIRUBIN,TOTAL 0.4 MG/DL (0.1-1.0); BLOOD UREA NITROGEN 36 MG/DL (7-18); BUN/CREATININE RATIO 16.2 (5.4-32.0); CALCIUM 9.6 MG/DL (8.5-10.1); CHLORIDE 104 MMOL/L (99-107); CREATININE 2.22 MG/DL (0.60-1.10); GLUCOSE 87 MG/DL (70-104); MAGNESIUM 1.9 MG/DL (1.5-2.4); POTASSIUM 4.3 MMOL/L (3.5-5.1); SODIUM 138 MMOL/L (135-145); TOTAL CARBON DIOXIDE 24.4 MMOL/L (24-32); TOTAL PROTEIN 7.5 G/DL (6.4-8.2); eGFR 28 ML/MIN
--- NOTE | 2020-02-06 06:16 | NUR ---
Problems reprioritized. Patient report given, questions answered & plan of care reviewed with BEBO Johnson.
--- NOTE | 2020-02-06 06:21 | NUR ---
Patient in room PCU 3023. I have received report from Ghada LAGUNAS and had the opportunity to ask questions and assume patient care.
[2020-02-06 07:00] VITALS: BP 134/77
[2020-02-06] MEDS: lactobacillus rhamnosus 10,000 MMU CELLS/CAPSULE PO SCH ×2 (08:00→20:32)
[2020-02-06] MEDS: metoprolol tartrate 25mg tablet PO SCH ×2 (08:00→20:33)
[2020-02-06] MEDS: K and/or MAG REPLACEMENT MC SCH ×2 (08:00→20:00)
[2020-02-06] MEDS: CefTRIAXone/D5W-Rocephin 1gm 50 ML IV SCH (08:37)
[2020-02-06] MEDS: docusate sod 100mg capsule PO SCH ×2 (08:37→20:00)
[2020-02-06] MEDS: clopidogrel 75mg tablet PO SCH (08:37)
[2020-02-06] MEDS: amLODIPine 2.5mg tablet PO SCH (08:37)
[2020-02-06] MEDS: sertraline 50mg tablet PO SCH (08:38)
[2020-02-06] MEDS: heparin, porcine 5000 units/ml vial SQ SCH ×2 (08:38→20:34)
[2020-02-06 11:00] VITALS: BP 128/68
[2020-02-06] MEDS: azithromycin/NS 500mg/250ml 250 ML IV SCH (11:13)
--- NOTE | 2020-02-06 14:28 | NUR ---
Received verbal order from Dr. Coreas while rounding to d/c Q4 neuro checks. She would like neuro checks to be done once per shift.
[2020-02-06 15:00] VITALS: BP 104/53
--- NOTE | 2020-02-06 18:42 | NUR ---
Problems reprioritized. Patient report given, questions answered & plan of care reviewed with Kelly LAGUNAS.
[2020-02-06 19:00] VITALS: BP 136/63
[2020-02-06] MEDS: ROSUVASTATIN CALCIUM PO SCH (20:34)
[2020-02-06 23:00] VITALS: BP 161/95
[2020-02-07 03:00] VITALS: BP 142/72
[2020-02-07 05:22] LABS: BASOPHILS # (AUTO) 0.1 X10'3 (0-0.2); BASOPHILS % (AUTO) 0.6 % (0-1); EOSINOPHILS # (AUTO) 0.3 X10'3 (0-0.9); EOSINOPHILS % (AUTO) 2.7 % (0-6); HEMATOCRIT 37.1 % (42.0-52.0); HEMOGLOBIN 12.8 g/dl (14.0-17.9); LYMPHOCYTES # (AUTO) 1.4 X10'3 (1.1-4.8); LYMPHOCYTES % (AUTO) 14.1 % (21-51); MEAN CORPUSCULAR HEMOGLOBIN 32.6 PG (27.0-31.0); MEAN CORPUSCULAR HGB CONC 34.6 g/dL (33.0-36.5); MEAN CORPUSCULAR VOLUME 94.1 FL (78-98); MEAN PLATELET VOLUME 8.3 FL (7.4-10.4); MONOCYTES # (AUTO) 0.9 X10'3 (0-0.9); MONOCYTES % (AUTO) 9.6 % (2-12); PLATELET COUNT 242 X10'3 (140-440); RED BLOOD COUNT 3.95 X10'6 (4.70-6.10); RED CELL DISTRIBUTION WIDTH 12.6 % (11.5-14.5); WHITE BLOOD COUNT 9.6 X10'3 (4.5-11.0)
[2020-02-07 05:34] LABS: ALANINE AMINOTRANSFERASE 30 U/L (12-78); ALBUMIN 2.8 G/DL (3.4-5.0); ALBUMIN/GLOBULIN RATIO 0.7 (1.1-1.5); ALKALINE PHOSPHATASE 92 IU/L (46-116); ANION GAP 12 (8-16); ASPARTATE AMINO TRANSFERASE 22 U/L (10-37); BILIRUBIN,TOTAL 0.4 MG/DL (0.1-1.0); BLOOD UREA NITROGEN 38 MG/DL (7-18); CALCIUM 9.2 MG/DL (8.5-10.1); CHLORIDE 105 MMOL/L (99-107); GLUCOSE 90 MG/DL (70-104); MAGNESIUM 1.7 MG/DL (1.5-2.4); SODIUM 138 MMOL/L (135-145); TOTAL CARBON DIOXIDE 20.9 MMOL/L (24-32); TOTAL PROTEIN 6.7 G/DL (6.4-8.2); eGFR 32 ML/MIN
[2020-02-07 07:00] VITALS: BP 158/60
--- NOTE | 2020-02-07 07:00 | NUR ---
Patient in room PCU 3023. I have received report from BEBO Mendoza and had the opportunity to ask questions and assume patient care. Patient asleep in bed and in no acute distress.
[2020-02-07] MEDS: K and/or MAG REPLACEMENT MC SCH ×2 (08:00→20:00)
[2020-02-07] MEDS: azithromycin/NS 500mg/250ml 250 ML IV SCH (08:27)
[2020-02-07] MEDS: amLODIPine 2.5mg tablet PO SCH (08:28)
[2020-02-07] MEDS: lactobacillus rhamnosus 10,000 MMU CELLS/CAPSULE PO SCH ×2 (08:28→21:04)
[2020-02-07] MEDS: sertraline 50mg tablet PO SCH (08:28)
[2020-02-07] MEDS: clopidogrel 75mg tablet PO SCH (08:29)
[2020-02-07] MEDS: docusate sod 100mg capsule PO SCH ×2 (08:29→21:04)
[2020-02-07] MEDS: metoprolol tartrate 25mg tablet PO SCH ×2 (08:29→21:05)
[2020-02-07] MEDS: heparin, porcine 5000 units/ml vial SQ SCH ×2 (08:30→21:05)
[2020-02-07] MEDS: CefTRIAXone/D5W-Rocephin 1gm 50 ML IV SCH (09:45)
[2020-02-07 11:00] VITALS: BP 139/64
--- NOTE | 2020-02-07 15:00 | NUR ---
Patient working with PT at the time of 1500 vitals. Will take vitals once patient is done working with PT.
[2020-02-07 16:00] VITALS: BP 121/63
--- NOTE | 2020-02-07 16:38 | NUR ---
Initial: patient presented to ED with metabolic encephalopathy and concerns for falling. 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 Encephalopathy has resolved per MD progress note, has probable PNA. Awaiting placement. Per DCP note patient somewhat confused and pending placement to alf. PO intake improved since admission, was eating 25% average and has improved to average of 75% PO intake likely meeting needs for age and size. Pt met at bedside, reports appetite is less than normal however is also eating enough to feel satisfied. Patient reports no food allergies. Declined food preferences. Will continue to follow. Recommend: 1. continue mechanical soft diet, chopped, heart healthy per [employer] recs 2. routine bowel care 3. weight per rx Addendum: 02/07/20 at [address] Amended: Links added.
--- NOTE | 2020-02-07 18:25 | NUR ---
Problems reprioritized. Patient report given, questions answered & plan of care reviewed with BEBO Mendoza. Patient stable at transfer of care.
[2020-02-07 19:00] VITALS: BP 147/64
[2020-02-07] MEDS: ROSUVASTATIN CALCIUM PO SCH (21:04)
[2020-02-07 23:00] VITALS: BP 134/53
[2020-02-08 03:00] VITALS: BP 141/63
--- NOTE | 2020-02-08 06:22 | NUR ---
Patient in room PCU 3023. I have received report from BEBO Mendoza and had the opportunity to ask questions and assume patient care. Patient awake in bed and in no acute distress.
[2020-02-08 07:00] VITALS: BP 130/61
[2020-02-08] MEDS: azithromycin/NS 500mg/250ml 250 ML IV SCH (07:43)
[2020-02-08] MEDS: heparin, porcine 5000 units/ml vial SQ SCH ×2 (07:44→20:21)
[2020-02-08] MEDS: lactobacillus rhamnosus 10,000 MMU CELLS/CAPSULE PO SCH ×2 (07:44→20:20)
[2020-02-08] MEDS: docusate sod 100mg capsule PO SCH ×2 (07:44→20:20)
[2020-02-08] MEDS: amLODIPine 2.5mg tablet PO SCH (07:45)
[2020-02-08] MEDS: clopidogrel 75mg tablet PO SCH (07:45)
[2020-02-08] MEDS: metoprolol tartrate 25mg tablet PO SCH ×2 (07:46→20:21)
[2020-02-08] MEDS: K and/or MAG REPLACEMENT MC SCH ×2 (07:46→19:09)
[2020-02-08] MEDS: sertraline 50mg tablet PO SCH (07:46)
[2020-02-08] MEDS: CefTRIAXone/D5W-Rocephin 1gm 50 ML IV SCH (08:59)
[2020-02-08 11:00] VITALS: BP 98/60
[2020-02-08 15:00] VITALS: BP 121/76
[2020-02-08 18:00] VITALS: BP 137/66
--- NOTE | 2020-02-08 18:39 | NUR ---
Problems reprioritized. Patient report given, questions answered & plan of care reviewed with BEBO Willis. Patient stable at transfer of care.
--- NOTE | 2020-02-08 18:55 | NUR ---
Patient in room PCU 3023. I have received report from Ana LAGUNAS and had the opportunity to ask questions and assume patient care.
[2020-02-08] MEDS: ROSUVASTATIN CALCIUM PO SCH (20:21)
[2020-02-08 22:00] VITALS: BP 128/58
[2020-02-09 02:14] VITALS: BP 130/73
--- NOTE | 2020-02-09 06:08 | NUR ---
Problems reprioritized. Patient report given, questions answered & plan of care reviewed with YUSUF LAGUNAS.
[2020-02-09 07:00] VITALS: BP 131/72
[2020-02-09] MEDS: azithromycin/NS 500mg/250ml 250 ML IV SCH (07:52)
[2020-02-09] MEDS: amLODIPine 2.5mg tablet PO SCH (07:53)
[2020-02-09] MEDS: sertraline 50mg tablet PO SCH (07:53)
[2020-02-09] MEDS: clopidogrel 75mg tablet PO SCH (07:54)
[2020-02-09] MEDS: metoprolol tartrate 25mg tablet PO SCH ×2 (07:54→19:33)
[2020-02-09] MEDS: lactobacillus rhamnosus 10,000 MMU CELLS/CAPSULE PO SCH ×2 (07:54→19:32)
[2020-02-09] MEDS: docusate sod 100mg capsule PO SCH ×2 (07:55→19:32)
[2020-02-09] MEDS: heparin, porcine 5000 units/ml vial SQ SCH ×2 (07:55→19:33)
[2020-02-09] MEDS: K and/or MAG REPLACEMENT MC SCH ×2 (08:00→20:00)
[2020-02-09] MEDS: CefTRIAXone/D5W-Rocephin 1gm 50 ML IV SCH (09:23)
[2020-02-09 11:00] VITALS: BP 119/58
[2020-02-09 15:00] VITALS: BP 121/54
[2020-02-09 18:00] VITALS: BP 130/63
--- NOTE | 2020-02-09 18:04 | NUR ---
Problems reprioritized. Patient report given, questions answered & plan of care reviewed with BEBO Olivas. Patient stable at transfer of care.
--- NOTE | 2020-02-09 18:30 | NUR ---
Patient in room PCU 3023. I have received report from Chantale LAGUNAS and had the opportunity to ask questions and assume patient care.
[2020-02-09 22:00] VITALS: BP 130/67
[2020-02-09] MEDS: ROSUVASTATIN CALCIUM PO SCH (22:04)
[2020-02-10 02:00] VITALS: BP 128/60
[2020-02-10 06:00] VITALS: BP 120/85
--- NOTE | 2020-02-10 06:13 | NUR ---
Patient in room PCU 3023. I have received report from Deiys and had the opportunity to ask questions and assume patient care. Patient awake on report and in no distress.
--- NOTE | 2020-02-10 06:28 | NUR ---
Patient in room PCU 3023. I have received report from Deisy LAGUNAS and had the opportunity to ask questions and assume patient care.
[2020-02-10 06:31] LABS: BASOPHILS # (AUTO) 0.1 X10'3 (0-0.2); BASOPHILS % (AUTO) 0.9 % (0-1); EOSINOPHILS # (AUTO) 0.3 X10'3 (0-0.9); EOSINOPHILS % (AUTO) 2.9 % (0-6); HEMOGLOBIN 12.5 g/dl (14.0-17.9); LYMPHOCYTES # (AUTO) 1.6 X10'3 (1.1-4.8); MEAN CORPUSCULAR HGB CONC 33.9 g/dL (33.0-36.5); MEAN CORPUSCULAR VOLUME 94.4 FL (78-98); MEAN PLATELET VOLUME 7.7 FL (7.4-10.4); MONOCYTES # (AUTO) 0.9 X10'3 (0-0.9); MONOCYTES % (AUTO) 9.7 % (2-12); NEUTROPHILS % (AUTO) 68.5 % (42-75); PLATELET COUNT 301 X10'3 (140-440); RED BLOOD COUNT 3.92 X10'6 (4.70-6.10); RED CELL DISTRIBUTION WIDTH 12.4 % (11.5-14.5); WHITE BLOOD COUNT 8.8 X10'3 (4.5-11.0)
--- NOTE | 2020-02-10 06:31 | NUR ---
Problems reprioritized. Patient report given, questions answered & plan of care reviewed with Stevan RN and Anogerson RN.
[2020-02-10 06:46] LABS: ALANINE AMINOTRANSFERASE 34 U/L (12-78); ALBUMIN 2.9 G/DL (3.4-5.0); ALBUMIN/GLOBULIN RATIO 0.8 (1.1-1.5); ALKALINE PHOSPHATASE 91 IU/L (46-116); ANION GAP 12 (8-16); ASPARTATE AMINO TRANSFERASE 25 U/L (10-37); BILIRUBIN,TOTAL 0.4 MG/DL (0.1-1.0); BLOOD UREA NITROGEN 36 MG/DL (7-18); BUN/CREATININE RATIO 16.9 (5.4-32.0); CALCIUM 9.2 MG/DL (8.5-10.1); CHLORIDE 106 MMOL/L (99-107); CREATININE 2.13 MG/DL (0.60-1.10); GLUCOSE 83 MG/DL (70-104); POTASSIUM 4.1 MMOL/L (3.5-5.1); SODIUM 140 MMOL/L (135-145); TOTAL CARBON DIOXIDE 22.4 MMOL/L (24-32); TOTAL PROTEIN 6.5 G/DL (6.4-8.2); eGFR 30 ML/MIN
[2020-02-10] MEDS ORDERED: azithromycin 250mg tablet PO ONE (08:00)
[2020-02-10] MEDS: K and/or MAG REPLACEMENT MC SCH ×2 (08:00→20:00)
[2020-02-10] MEDS: heparin, porcine 5000 units/ml vial SQ SCH ×2 (08:07→21:03)
[2020-02-10] MEDS: docusate sod 100mg capsule PO SCH ×2 (08:07→21:03)
[2020-02-10] MEDS: clopidogrel 75mg tablet PO SCH (08:08)
[2020-02-10] MEDS: amLODIPine 2.5mg tablet PO SCH (08:08)
[2020-02-10] MEDS: lactobacillus rhamnosus 10,000 MMU CELLS/CAPSULE PO SCH ×2 (08:08→21:03)
[2020-02-10] MEDS: sertraline 50mg tablet PO SCH (08:09)
[2020-02-10] MEDS: CefTRIAXone/D5W-Rocephin 1gm 50 ML IV SCH (08:09)
[2020-02-10] MEDS: metoprolol tartrate 25mg tablet PO SCH ×2 (08:10→21:04)
[2020-02-10 11:00] VITALS: BP 128/59
[2020-02-10 15:00] VITALS: BP 139/64
--- NOTE | 2020-02-10 17:58 | NUR ---
Orientee documentation: I have reviewed and agree with all interventions, assessments performed and documented by Isauro LAGUNAS.
--- NOTE | 2020-02-10 18:26 | NUR ---
Problems reprioritized. Patient report given, questions answered & plan of care reviewed with Deisy LAGUNAS. Patient resting comfortably and in no distress.
--- NOTE | 2020-02-10 18:30 | NUR ---
Patient in room MOISE 346. I have received report from Noam LAGUNAS and had the opportunity to ask questions and assume patient care. Addendum: 02/10/20 at 1923 by Deisy Rodriguez RN pt was in room 3018A during this report
--- NOTE | 2020-02-10 19:17 | NUR ---
Patient in room MOISE 346. I have received report from Prema LAGUNAS and had the opportunity to ask questions and assume patient care. Patient is a transfer from PCU/TELE. He is resting in bed and denies any discomfort.
--- NOTE | 2020-02-10 19:20 | NUR ---
Problems reprioritized. Patient report given, questions answered & plan of care reviewed with Prudence RN. pt transferred to surgical. all belongings collected.
[2020-02-10] MEDS: ROSUVASTATIN CALCIUM PO SCH (21:49)
[2020-02-11] VITALS: BP 112/54
--- NOTE | 2020-02-11 06:14 | NUR ---
Patient in room MOISE 346A. I have received report from BEBO ELLSWORTH and had the opportunity to ask questions and assume patient care.
--- NOTE | 2020-02-11 06:29 | NUR ---
Problems reprioritized. Patient report given, questions answered & plan of care reviewed with LOLA LAGUNAS.Patient is resting with with no apparent distress.
[2020-02-11 08:00] VITALS: BP 139/72
[2020-02-11] MEDS: K and/or MAG REPLACEMENT MC SCH ×2 (08:00→20:00)
[2020-02-11] MEDS: lactobacillus rhamnosus 10,000 MMU CELLS/CAPSULE PO SCH ×2 (08:27→21:15)
[2020-02-11] MEDS: metoprolol tartrate 25mg tablet PO SCH ×2 (08:27→21:16)
[2020-02-11] MEDS: clopidogrel 75mg tablet PO SCH (08:27)
[2020-02-11] MEDS: amLODIPine 2.5mg tablet PO SCH (08:28)
[2020-02-11] MEDS: heparin, porcine 5000 units/ml vial SQ SCH ×2 (08:28→21:17)
[2020-02-11] MEDS: sertraline 50mg tablet PO SCH (08:28)
[2020-02-11] MEDS: docusate sod 100mg capsule PO SCH ×2 (08:28→21:16)
[2020-02-11] MEDS: CefTRIAXone/D5W-Rocephin 1gm 50 ML IV SCH (08:42)
[2020-02-11 11:53] VITALS: BP 135/53
[2020-02-11 19:00] VITALS: BP 143/66
--- NOTE | 2020-02-11 19:19 | NUR ---
Problems reprioritized. Patient report given, questions answered & plan of care reviewed with GILBERTO RN.
--- NOTE | 2020-02-11 19:30 | NUR ---
informed in shift change report that pt is not impulsive & is aware not to get out of bed without assist; pt has been appropriate in using the call light Addendum: 02/12/20 at 0305 by Catalina Crouch RN Amended: Links added.
[2020-02-11] MEDS: ROSUVASTATIN CALCIUM PO SCH (21:16)
[2020-02-12] VITALS: BP 130/61
--- NOTE | 2020-02-12 06:52 | NUR ---
Patient in room MOISE 346. I have received report from BEBO Garcia and had the opportunity to ask questions and assume patient care.
[2020-02-12] MEDS: metoprolol tartrate 25mg tablet PO SCH ×2 (08:50→20:58)
[2020-02-12] MEDS: lactobacillus rhamnosus 10,000 MMU CELLS/CAPSULE PO SCH ×2 (08:50→20:58)
[2020-02-12] MEDS: docusate sod 100mg capsule PO SCH ×2 (08:50→20:57)
[2020-02-12] MEDS: sertraline 50mg tablet PO SCH (08:51)
[2020-02-12] MEDS: clopidogrel 75mg tablet PO SCH (08:51)
[2020-02-12] MEDS: amLODIPine 2.5mg tablet PO SCH (08:51)
[2020-02-12] MEDS: heparin, porcine 5000 units/ml vial SQ SCH ×2 (08:52→20:58)
[2020-02-12] MEDS: K and/or MAG REPLACEMENT MC SCH ×2 (08:56→20:00)
[2020-02-12 09:41] VITALS: BP 125/63
[2020-02-12 11:00] VITALS: BP 130/62
--- NOTE | 2020-02-12 18:29 | NUR ---
Patient in room MOISE 344. I have received report from BEBO Galindo and had the opportunity to ask questions and assume patient care.
[2020-02-12 19:00] VITALS: BP 120/63
[2020-02-12] MEDS: ROSUVASTATIN CALCIUM PO SCH (20:59)
[2020-02-13] VITALS: BP 116/63
--- NOTE | 2020-02-13 06:57 | NUR ---
Patient in room MOISE 346. I have received report from Mateo LAGUNAS and had the opportunity to ask questions and assume patient care.
[2020-02-13 08:00] VITALS: BP 135/62
[2020-02-13] MEDS: heparin, porcine 5000 units/ml vial SQ SCH ×2 (08:00→20:40)
[2020-02-13] MEDS: K and/or MAG REPLACEMENT MC SCH ×2 (08:00→20:00)
[2020-02-13] MEDS: lactobacillus rhamnosus 10,000 MMU CELLS/CAPSULE PO SCH ×2 (08:38→20:35)
[2020-02-13] MEDS: clopidogrel 75mg tablet PO SCH (08:38)
[2020-02-13] MEDS: metoprolol tartrate 25mg tablet PO SCH ×2 (08:38→20:35)
[2020-02-13] MEDS: docusate sod 100mg capsule PO SCH ×2 (08:38→20:35)
[2020-02-13] MEDS: sertraline 50mg tablet PO SCH (08:38)
[2020-02-13] MEDS: amLODIPine 2.5mg tablet PO SCH (08:39)
--- NOTE | 2020-02-13 10:32 | NUR ---
Reassessment: Metabolic encephalopathy resolved per MD notes. Pt now documented as A/O x 3 per physical assessment. Pt continues on mechanical soft chop all diet with thin liquids per ST recs. Pt with fluctuating PO intake with average 50-75% PO intake recently down to average 25-50% however back up to average 50-75% most recent meals. Pt likely meeting nutrient needs given geriatric age. LBM 8/, receiving routine bowel care. No nutrition intervention warranted at this time. Will continue to follow. Recommend: 1. continue mechanical soft diet, chopped, heart healthy per [facility] recs 2. routine bowel care 3. weight per rx Addendum: 02/13/20 at [address] Amended: Links added.
[2020-02-13 11:30] VITALS: BP 110/68
[2020-02-13 19:00] VITALS: BP 132/70
[2020-02-13] MEDS: ROSUVASTATIN CALCIUM PO SCH (21:17)
[2020-02-14] VITALS: BP 123/67
--- NOTE | 2020-02-14 06:25 | NUR ---
Patient in room MOISE 346A. I have received report from BEBO MARTINS and had the opportunity to ask questions and assume patient care.
[2020-02-14 07:00] VITALS: BP 143/64
[2020-02-14] MEDS: heparin, porcine 5000 units/ml vial SQ SCH ×2 (07:49→21:17)
[2020-02-14] MEDS: K and/or MAG REPLACEMENT MC SCH ×2 (08:00→20:00)
[2020-02-14] MEDS: sertraline 50mg tablet PO SCH (08:03)
[2020-02-14] MEDS: lactobacillus rhamnosus 10,000 MMU CELLS/CAPSULE PO SCH ×2 (08:03→21:17)
[2020-02-14] MEDS: clopidogrel 75mg tablet PO SCH (08:04)
[2020-02-14] MEDS: amLODIPine 2.5mg tablet PO SCH (08:04)
[2020-02-14] MEDS: metoprolol tartrate 25mg tablet PO SCH ×2 (08:04→21:17)
[2020-02-14] MEDS: docusate sod 100mg capsule PO SCH ×2 (08:04→21:17)
[2020-02-14 11:00] VITALS: BP 118/49
[2020-02-14 18:15] VITALS: BP 138/51
--- NOTE | 2020-02-14 18:57 | NUR ---
Patient in room MOISE 359. I have received report from Waleska Mtz RN and had the opportunity to ask questions and assume patient care.
--- NOTE | 2020-02-14 19:03 | NUR ---
Problems reprioritized. Patient report given, questions answered & plan of care reviewed with BEBO ANDRE.
[2020-02-14] MEDS: ROSUVASTATIN CALCIUM PO SCH (21:19)
[2020-02-15 00:15] VITALS: BP 133/69
[2020-02-15] MEDS: acetaminophen 325mg tablet PO PRN (02:44)
[2020-02-15 05:16] LABS: ALBUMIN 3.1 G/DL (3.4-5.0); ANION GAP 12 (8-16); BLOOD UREA NITROGEN 47 MG/DL (7-18); BUN/CREATININE RATIO 21.3 (5.4-32.0); CALCIUM 9.2 MG/DL (8.5-10.1); CHLORIDE 105 MMOL/L (99-107); CREATININE 2.21 MG/DL (0.60-1.10); GLUCOSE 106 MG/DL (70-104); POTASSIUM 4.4 MMOL/L (3.5-5.1); SODIUM 139 MMOL/L (135-145); TOTAL CARBON DIOXIDE 21.9 MMOL/L (24-32); eGFR 29 ML/MIN
[2020-02-15 05:22] LABS: BASOPHILS # (AUTO) 0.1 X10'3 (0-0.2); BASOPHILS % (AUTO) 0.6 % (0-1); EOSINOPHILS # (AUTO) 0.2 X10'3 (0-0.9); EOSINOPHILS % (AUTO) 1.7 % (0-6); HEMATOCRIT 38.9 % (42.0-52.0); HEMOGLOBIN 13.1 g/dl (14.0-17.9); LYMPHOCYTES # (AUTO) 1.4 X10'3 (1.1-4.8); LYMPHOCYTES % (AUTO) 9.9 % (21-51); MEAN CORPUSCULAR HEMOGLOBIN 31.8 PG (27.0-31.0); MEAN CORPUSCULAR HGB CONC 33.8 g/dL (33.0-36.5); MEAN PLATELET VOLUME 7.9 FL (7.4-10.4); MONOCYTES # (AUTO) 1.2 X10'3 (0-0.9); MONOCYTES % (AUTO) 8.7 % (2-12); NEUTROPHILS # (AUTO) 10.9 X10'3 (1.8-7.7); NEUTROPHILS % (AUTO) 79.1 % (42-75); PLATELET COUNT 305 X10'3 (140-440); RED BLOOD COUNT 4.13 X10'6 (4.70-6.10); RED CELL DISTRIBUTION WIDTH 12.7 % (11.5-14.5); WHITE BLOOD COUNT 13.8 X10'3 (4.5-11.0)
--- NOTE | 2020-02-15 06:25 | NUR ---
Patient in room MOISE 359. I have received report from BEBO Gonzalez and had the opportunity to ask questions and assume patient care.
--- NOTE | 2020-02-15 06:41 | NUR ---
Problems reprioritized. Patient report given, questions answered & plan of care reviewed with BEBO Sung.
[2020-02-15] MEDS: magnesium hydroxide 30ml (MOM) UD suspension PO PRN (07:59)
[2020-02-15] MEDS: amLODIPine 2.5mg tablet PO SCH (07:59)
[2020-02-15] MEDS: heparin, porcine 5000 units/ml vial SQ SCH ×2 (08:00→20:02)
[2020-02-15] MEDS: K and/or MAG REPLACEMENT MC SCH ×2 (08:00→20:07)
[2020-02-15] MEDS: sertraline 50mg tablet PO SCH (08:00)
[2020-02-15] MEDS: clopidogrel 75mg tablet PO SCH (08:00)
[2020-02-15] MEDS: metoprolol tartrate 25mg tablet PO SCH ×2 (08:00→20:02)
[2020-02-15] MEDS: docusate sod 100mg capsule PO SCH ×2 (08:01→20:06)
[2020-02-15] MEDS: lactobacillus rhamnosus 10,000 MMU CELLS/CAPSULE PO SCH ×2 (08:02→20:02)
--- NOTE | 2020-02-15 08:07 | NUR ---
Medications scanned and educated to patient then dispensed to med cup. When handed to patient to take orally, patient refusing to take medications stating, "if those are my medications why did they not come on my meal plate? Something about that is telling me it's wrong. I don't believe they're mine." Explained to patient that medications are not dispensed from the kitchen and therefore they do not come on meal plates. Also explained that the patient's nurses are the ones who remove medications from omnicell, which are ordered by the MD, scan and check meds so there is no medication error. Explained that no patient's medications are delivered on their meal plates as medications errors can occur if they are dispensed that way. Patient continues to refuse and state, "I'm not taking it!"
[2020-02-15 08:18] VITALS: BP 124/61
--- NOTE | 2020-02-15 09:00 | NUR ---
Problems reprioritized. Patient report given, questions answered & plan of care reviewed with BEBO Perez.
--- NOTE | 2020-02-15 09:05 | NUR ---
Patient in room MOISE 359. I have received report from BEBO Sung and had the opportunity to ask questions and assume patient care.
[2020-02-15 12:00] VITALS: BP 138/69
[2020-02-15] MEDS: normal saline 1000ml 1,000 ML IV SCH (13:52)
--- NOTE | 2020-02-15 18:17 | NUR ---
Problems reprioritized. Patient report given, questions answered & plan of care reviewed with BEBO Park.
[2020-02-15 19:47] VITALS: BP 134/61
[2020-02-15] MEDS: ROSUVASTATIN CALCIUM PO SCH (20:02)
[2020-02-16] VITALS: BP 140/73
[2020-02-16] MEDS: normal saline 1000ml 1,000 ML IV SCH ×3 (03:04→20:47)
--- NOTE | 2020-02-16 06:25 | NUR ---
Patient in room MOISE 359. I have received report from BEBO Park and had the opportunity to ask questions and assume patient care.
[2020-02-16 06:30] VITALS: BP 146/74
--- NOTE | 2020-02-16 06:41 | NUR ---
Reported off to Ligia RN. Patient is awake and alert on room air. In no apparent distress. Call light and items of frequent use within reach.
[2020-02-16] MEDS: K and/or MAG REPLACEMENT MC SCH ×2 (07:03→20:00)
[2020-02-16] MEDS: docusate sod 100mg capsule PO SCH ×2 (09:04→20:00)
[2020-02-16] MEDS: lactobacillus rhamnosus 10,000 MMU CELLS/CAPSULE PO SCH ×2 (09:05→19:55)
[2020-02-16] MEDS: sertraline 50mg tablet PO SCH (09:05)
[2020-02-16] MEDS: clopidogrel 75mg tablet PO SCH (09:05)
[2020-02-16] MEDS: metoprolol tartrate 25mg tablet PO SCH ×2 (09:05→20:00)
[2020-02-16] MEDS: amLODIPine 2.5mg tablet PO SCH (09:05)
[2020-02-16] MEDS: magnesium hydroxide 30ml (MOM) UD suspension PO PRN (09:05)
[2020-02-16] MEDS: heparin, porcine 5000 units/ml vial SQ SCH ×2 (09:06→19:55)
[2020-02-16 11:00] VITALS: BP 154/82
[2020-02-16 18:00] VITALS: BP 116/80
--- NOTE | 2020-02-16 18:40 | NUR ---
Problems reprioritized. Patient report given, questions answered & plan of care reviewed with BEBO Box.
[2020-02-16] MEDS: ROSUVASTATIN CALCIUM PO SCH (19:55)
[2020-02-17] VITALS: BP 147/67
[2020-02-17 06:30] VITALS: BP 141/69
--- NOTE | 2020-02-17 06:30 | NUR ---
Patient in room MOISE 359. I have received report from BEBO Box and had the opportunity to ask questions and assume patient care.
[2020-02-17 07:25] LABS: BASOPHILS # (AUTO) 0.1 X10'3 (0-0.2); BASOPHILS % (AUTO) 0.8 % (0-1); EOSINOPHILS # (AUTO) 0.2 X10'3 (0-0.9); EOSINOPHILS % (AUTO) 2.3 % (0-6); HEMATOCRIT 36.3 % (42.0-52.0); HEMOGLOBIN 12.3 g/dl (14.0-17.9); LYMPHOCYTES # (AUTO) 1.3 X10'3 (1.1-4.8); MEAN CORPUSCULAR HEMOGLOBIN 32.1 PG (27.0-31.0); MEAN CORPUSCULAR HGB CONC 33.8 g/dL (33.0-36.5); MEAN PLATELET VOLUME 7.7 FL (7.4-10.4); MONOCYTES # (AUTO) 0.9 X10'3 (0-0.9); MONOCYTES % (AUTO) 8.3 % (2-12); NEUTROPHILS # (AUTO) 7.7 X10'3 (1.8-7.7); NEUTROPHILS % (AUTO) 75.6 % (42-75); PLATELET COUNT 288 X10'3 (140-440); RED BLOOD COUNT 3.82 X10'6 (4.70-6.10); RED CELL DISTRIBUTION WIDTH 12.8 % (11.5-14.5); WHITE BLOOD COUNT 10.2 X10'3 (4.5-11.0)
[2020-02-17 07:33] LABS: ALBUMIN 2.9 G/DL (3.4-5.0); ANION GAP 8 (8-16); BLOOD UREA NITROGEN 32 MG/DL (7-18); BUN/CREATININE RATIO 17.2 (5.4-32.0); CALCIUM 8.9 MG/DL (8.5-10.1); CHLORIDE 108 MMOL/L (99-107); CREATININE 1.86 MG/DL (0.60-1.10); GLUCOSE 85 MG/DL (70-104); POTASSIUM 4.4 MMOL/L (3.5-5.1); SODIUM 140 MMOL/L (135-145); TOTAL CARBON DIOXIDE 23.7 MMOL/L (24-32); eGFR 35 ML/MIN
[2020-02-17] MEDS: docusate sod 100mg capsule PO SCH ×2 (08:00→20:42)
[2020-02-17] MEDS: lactobacillus rhamnosus 10,000 MMU CELLS/CAPSULE PO SCH ×2 (09:42→20:37)
[2020-02-17] MEDS: metoprolol tartrate 25mg tablet PO SCH ×2 (09:43→20:37)
[2020-02-17] MEDS: clopidogrel 75mg tablet PO SCH (09:43)
[2020-02-17] MEDS: sertraline 50mg tablet PO SCH (09:43)
[2020-02-17] MEDS: amLODIPine 2.5mg tablet PO SCH (09:46)
[2020-02-17] MEDS: heparin, porcine 5000 units/ml vial SQ SCH ×2 (09:48→20:38)
--- NOTE | 2020-02-17 09:51 | NUR ---
Unable to scan [facility], pharmacy was notified. SN from [facility] administered medication with comment added to medication. All 5 rights performed on medication.
[2020-02-17] MEDS: K and/or MAG REPLACEMENT MC SCH ×2 (09:57→20:00)
[2020-02-17] MEDS: normal saline 1000ml 1,000 ML IV SCH (10:48)
[2020-02-17 11:45] VITALS: BP 103/81
[2020-02-17 18:00] VITALS: BP 140/64
--- NOTE | 2020-02-17 19:00 | NUR ---
Problems reprioritized. Patient report given, questions answered & plan of care reviewed with BEBO Box.
[2020-02-17] MEDS: ROSUVASTATIN CALCIUM PO SCH (20:39)
[2020-02-18] VITALS: BP 145/71
--- NOTE | 2020-02-18 06:15 | NUR ---
Patient in room MOISE 359. I have received report from BEBO Box and had the opportunity to ask questions and assume patient care.
[2020-02-18 06:30] VITALS: BP 157/77
[2020-02-18] MEDS: K and/or MAG REPLACEMENT MC SCH ×2 (06:55→20:00)
[2020-02-18] MEDS: docusate sod 100mg capsule PO SCH ×2 (08:00→21:22)
[2020-02-18 09:22] VITALS: BP 129/79
[2020-02-18] MEDS: sertraline 50mg tablet PO SCH (09:23)
[2020-02-18] MEDS: clopidogrel 75mg tablet PO SCH (09:23)
[2020-02-18] MEDS: lactobacillus rhamnosus 10,000 MMU CELLS/CAPSULE PO SCH ×2 (09:23→21:19)
[2020-02-18] MEDS: metoprolol tartrate 25mg tablet PO SCH ×2 (09:24→21:19)
[2020-02-18] MEDS: amLODIPine 2.5mg tablet PO SCH (09:24)
[2020-02-18] MEDS: heparin, porcine 5000 units/ml vial SQ SCH ×2 (09:58→21:19)
[2020-02-18 11:00] VITALS: BP 130/60
[2020-02-18] MEDS: normal saline 1000ml 1,000 ML IV SCH (13:18)
--- NOTE | 2020-02-18 18:50 | NUR ---
Problems reprioritized. Patient report given, questions answered & plan of care reviewed with Radha RN.
[2020-02-18 19:30] VITALS: BP 141/63
[2020-02-18] MEDS: ROSUVASTATIN CALCIUM PO SCH (21:20)
[2020-02-19] VITALS: BP 153/70
[2020-02-19] MEDS: normal saline 1000ml 1,000 ML IV SCH ×2 (02:54→16:39)
--- NOTE | 2020-02-19 06:45 | NUR ---
Patient in room MOIES 359. I have received report from BEBO Garcia and had the opportunity to ask questions and assume patient care.
[2020-02-19] MEDS: K and/or MAG REPLACEMENT MC SCH ×2 (07:11→19:49)
[2020-02-19 07:56] VITALS: BP 123/83
[2020-02-19] MEDS: furosemide 20MG tablet PO SCH (08:49)
[2020-02-19] MEDS: amLODIPine 2.5mg tablet PO SCH (08:49)
[2020-02-19] MEDS: metoprolol tartrate 25mg tablet PO SCH ×2 (08:50→21:11)
[2020-02-19] MEDS: sertraline 50mg tablet PO SCH (08:50)
[2020-02-19] MEDS: lactobacillus rhamnosus 10,000 MMU CELLS/CAPSULE PO SCH ×2 (08:50→21:10)
[2020-02-19] MEDS: clopidogrel 75mg tablet PO SCH (08:50)
[2020-02-19] MEDS: heparin, porcine 5000 units/ml vial SQ SCH ×2 (08:51→21:11)
[2020-02-19] MEDS: docusate sod 100mg capsule PO SCH ×2 (08:53→21:10)
[2020-02-19 11:00] VITALS: BP 121/68
--- NOTE | 2020-02-19 16:14 | NUR ---
Reassessment: Pt continues on mechanical soft chop all diet with thin liquids per ST recs. Pt with fluctuating PO intake with average 50-75% PO intake recently down to average 25-50% however back up to average 50-75% most recent meals. Pt likely meeting nutrient needs given geriatric age. LBM 02/15, receiving routine bowel care. No nutrition intervention warranted at this time. Was accepted at [facility] per CM interval note. Will continue to follow. Recommend: 1. continue mechanical soft diet, chopped, heart healthy per [facility] recs 2. routine bowel care 3. weight per rx Addendum: 02/19/20 at [address] Amended: Links added.
--- NOTE | 2020-02-19 18:21 | NUR ---
Problems reprioritized. Patient report given, questions answered & plan of care reviewed with BEBO Ron.
--- NOTE | 2020-02-19 18:47 | NUR ---
Patient in room MOISE 340. I have received report from Lanie LAGUNAS and had the opportunity to ask questions and assume patient care.
[2020-02-19 19:49] VITALS: BP 150/79
[2020-02-19] MEDS: ROSUVASTATIN CALCIUM PO SCH (21:12)
[2020-02-20 00:14] VITALS: BP 147/72
[2020-02-20] MEDS: normal saline 1000ml 1,000 ML IV SCH (04:26)
--- NOTE | 2020-02-20 06:30 | NUR ---
Problems reprioritized. Patient report given, questions answered & plan of care reviewed with Lanie LAGUNAS.
--- NOTE | 2020-02-20 06:36 | NUR ---
Patient in room MOISE 359. I have received report from BEBO Ron and had the opportunity to ask questions and assume patient care.
--- NOTE | 2020-02-20 06:39 | NUR ---
Patient in room MOISE 359. I have received report from Ariadne LAGUNAS and had the opportunity to ask questions and assume patient care.
[2020-02-20 07:00] VITALS: BP 159/81
[2020-02-20] MEDS: K and/or MAG REPLACEMENT MC SCH ×2 (07:28→20:00)
[2020-02-20] MEDS: docusate sod 100mg capsule PO SCH ×2 (07:58→20:09)
[2020-02-20] MEDS: lactobacillus rhamnosus 10,000 MMU CELLS/CAPSULE PO SCH ×2 (07:59→20:09)
[2020-02-20] MEDS: furosemide 20MG tablet PO SCH (07:59)
[2020-02-20] MEDS: metoprolol tartrate 25mg tablet PO SCH ×2 (08:00→20:09)
[2020-02-20] MEDS: sertraline 50mg tablet PO SCH (08:01)
[2020-02-20] MEDS: amLODIPine 2.5mg tablet PO SCH (08:01)
[2020-02-20] MEDS: clopidogrel 75mg tablet PO SCH (08:01)
[2020-02-20] MEDS: heparin, porcine 5000 units/ml vial SQ SCH ×2 (08:05→20:10)
[2020-02-20 11:00] VITALS: BP 118/60
--- NOTE | 2020-02-20 16:50 | NUR ---
Per MD order, used sterile technique to place a 16 serbian tena catheter for pt transport to [facility] in [facility] in the AM. Catheter was placed without issue, balloon inflated with 10 ml of NS, leg clasp attached and tubing clipped to left leg. Patient did well and there was good urine return into the collection bag. Yobani Joseph, Student Nurse
--- NOTE | 2020-02-20 18:19 | NUR ---
Problems reprioritized. Patient report given, questions answered & plan of care reviewed with BEBO Ron.
--- NOTE | 2020-02-20 18:22 | NUR ---
Problems reprioritized. Patient report given, questions answered & plan of care reviewed with Ariadne LAGUNAS.
--- NOTE | 2020-02-20 19:48 | NUR ---
Patient in room MOISE 357. I have received report from Lanie LAGUNAS and had the opportunity to ask questions and assume patient care.
[2020-02-20 20:00] VITALS: BP 131/64
[2020-02-20] MEDS: ROSUVASTATIN CALCIUM PO SCH (20:11)
[2020-02-20] MEDS: acetaminophen 325mg tablet PO PRN (23:46)
[2020-02-21] VITALS: BP 146/73
--- NOTE | 2020-02-21 06:08 | NUR ---
Problems reprioritized. Patient report given, questions answered & plan of care reviewed with Lanie LAGUNAS.
--- NOTE | 2020-02-21 06:41 | NUR ---
Patient in room MOISE 359. I have received report from BEBO Ron and had the opportunity to ask questions and assume patient care.
[2020-02-21] MEDS: K and/or MAG REPLACEMENT MC SCH (07:10)
[2020-02-21] MEDS: metoprolol tartrate 25mg tablet PO SCH (07:14)
[2020-02-21] MEDS: furosemide 20MG tablet PO SCH (07:14)
[2020-02-21] MEDS: docusate sod 100mg capsule PO SCH (07:14)
[2020-02-21] MEDS: sertraline 50mg tablet PO SCH (07:14)
[2020-02-21] MEDS: amLODIPine 2.5mg tablet PO SCH (07:14)
[2020-02-21] MEDS: lactobacillus rhamnosus 10,000 MMU CELLS/CAPSULE PO SCH (07:14)
[2020-02-21] MEDS: clopidogrel 75mg tablet PO SCH (07:14)
[2020-02-21] MEDS: heparin, porcine 5000 units/ml vial SQ SCH (07:15)
--- NOTE | 2020-02-21 07:26 | NUR ---
Attempted to call report to [facility]. They stated that the person in charge isn't there until 0830 and to call back then. They were informed that patient would be leaving [facility] at 0800. They stated, "I know but I can not help you, you will have to call back at 0830." Will attempt to call at 0830.
[2020-02-21 07:40] VITALS: BP 120/71
--- NOTE | 2020-02-21 09:45 | NUR ---
Called report to Judith at [facility]. All questions answered.
--- NOTE | 2020-02-21 10:02 | NUR ---
Patient discharged to [place] via [facility] and taken from unit via [facility] with x2 [facility] staff. Patient alert and in no apparent distress at time of discharge. Patient had tena catheter in place per MD order for transportation. Patient had all belongings with him. PIV was removed with cannula intact.
== END 2020-02-21 08:39 | DRG 70 ==
LOC: ER 20:50 → ED HOLD 02-02 01:45 → PCU 3S 02-02 06:37 → SUR 3N 02-10 19:15
PROVIDERS: ADMIT Family Medicine; ATTEND Family Medicine
DX: G93.41 Metabolic encephalopathy (principal); J18.9 Pneumonia, unspecified organism; N17.9 Acute kidney failure, unspecified; R44.3 Hallucinations, unspecified; E78.5 Hyperlipidemia, unspecified; F03.90 Unspecified dementia, unspecified severity, without behavioral disturbance, psychotic disturbance, mood disturbance, and anxiety; I25.10 Atherosclerotic heart disease of native coronary artery without angina pectoris; I50.812 Chronic right heart failure; N18.3 Chronic kidney disease, stage 3 (moderate); J44.9 Chronic obstructive pulmonary disease, unspecified; E86.0 Dehydration; Z79.899 Other long term (current) drug therapy; Z87.891 Personal history of nicotine dependence; Z95.1 Presence of aortocoronary bypass graft; Z88.8 Allergy status to other drugs, medicaments and biological substances; Z79.02 Long term (current) use of antithrombotics/antiplatelets
CPT/HCPCS: 36415; 70450; 71045; 80048; 80053; 81001; 82140; 83605; 83735; 83880; 84145; 84484; 85025; 87040; 87081; 92508; 92616; 93005; 93306; 94640; 94760; 97110; 97116; 97161; 97530; 97535; 99285; G0378; J0456; J0696; J1644; J7030